=== PATIENT | female | born 2000 | race Caucasian/White ===

== ENCOUNTER 2019-03-28 15:31 | Emergency (ER) | payer OTHER ==
[2019-03-28 15:47] VITALS: BP 143/90
--- NOTE | 2019-03-28 16:00 | UC ---
Complaint Female HPI - HPI Summary HPI Summary: 18-year-old female presenting with friend for complaint of urinary frequency, urgency, and "bladder pressure" 2-3 days. Also states "it feels like I can't empty my bladder all the way." Patient states she is concerned for a UTI although this does not feel like her normal UTI. Denies dysuria or hematuria. Denies malodorous urine. Denies abdominal pain. Denies flank pain. Denies nausea and vomiting. Denies fever and chills. Patient adds she "gets really nervous around doctors." - History Of Current Complaint Chief Complaint: UCGU Stated Complaint: PERSONAL Hx Obtained From: Patient Hx Last Menstrual Period: 02/19/19 Pain Intensity: 5 Pain Scale Used: 0-10 Numeric - Allergies/Home Medications Allergies/Adverse Reactions: Allergies Allergy/AdvReac Type Severity Reaction Status Date / Time No Known Allergies Allergy Verified 03/28/19 15:47 Home Medications: Home Medications Control 1 tab PO DAILY 03/28/19 [History Confirmed 03/28/19] Nitrofurantoin Monohyd/M-Cryst [Macrobid 100 mg Capsule] 100 mg PO BID #10 cap 03/28/19 [Rx] PMH/Surg Hx/FS Hx/Imm Hx - Surgical History Surgical History: Yes Surgery Procedure, Year, and Place: left ovary for tortion and cyst - Family History Known Family History: Positive: Non-Contributory - Social History Alcohol Use: None Substance Use Type: None Smoking Status (MU): Never Smoked Tobacco Review of Systems All Other Systems Reviewed And Are Negative: Yes Constitutional: Positive: Negative Respiratory: Positive: Negative Cardiovascular: Positive: Negative Gastrointestinal: Positive: Abdominal Pain - lower abdominal/bladder pressure. Negative: Vomiting, Diarrhea, Nausea Genitourinary: Positive: Frequency, Urgency. Negative: Dysuria, Hematuria Musculoskeletal: Positive: Negative Neurological/Mental Status: Positive: Negative Psychological: Positive: Anxious Physical Exam - Summary Physical Exam Summary: Vital Signs Reviewed: Yes A+Ox3, no distress Eyes: Conjunctiva Clear ENT: Hearing grossly normal Neck: Positive: Supple Respiratory: Positive: No respiratory distress, No accessory muscle use + CTA throughout no w/r Cardiovascular: RRR nl s1, s2 no m/r Abd: soft + BS, +mild discomfort with palpation of b/l lower abdomen, no distention, no guarding Musculoskeletal Exam: KONG x 4 without difficulty Neurological: Positive: Alert Psychological: Positive: age appropriate behavior Skin: Positive: no rash, no ecchymosis Vital Signs: Initial Vital Signs Temp 99.7 F 03/28/19 15:41 Pulse 96 03/28/19 15:41 Resp 16 03/28/19 15:41 BP 143/90 03/28/19 15:41 Pulse Ox 97 03/28/19 15:41 Lab Results 03/28/19 03/28/19 Range/Units 15:59 16:01 POC Urine Color Yellow POC Urine Clarity Slightly cloudy POC Urine pH 7.0 (5-9) POC Ur Specif [place] 1.020 (1.010-1.030) POC Urine Protein Negative (Negative) POC Ur Glucose (UA) Negative (Negative) POC Urine Ketones Negative (Negative) POC Urine Blood Trace-intact (Negative) POC Urine Nitrite Negative (Negative) POC Urine Bilirubin Negative (Negative) POC Urine Urobilinogen 1.0 (Negative) POC U Leukocyte Esteras Trace A (Negative) POC Ur Test Negative (Negative) Complaint Female Dx - Course Course Of Treatment: UA positive for trace blood and leuks. I treated patient with macrobid for UTI and instructed to take Azo for symptom relief. Instructed to follow up with [facility] if symptoms persist and to go to ED with any new or worsening symptoms. Patient voiced understanding and agreed with treatment plan. - Differential Dx/Diagnosis Provider Diagnosis: UTI (urinary tract infection) Discharge ED - Sign-Out/Discharge Documenting (check all that apply): Patient Departure All imaging exams completed and their final reports reviewed: No Studies - Discharge Plan Condition: Stable Disposition: HOME Prescriptions: Nitrofurantoin Monohyd/M-Cryst [Macrobid 100 mg Capsule] 100 mg PO BID #10 cap Patient Education Materials: Urinary Tract Infection in Women (ED) Referrals: [facility] [Outside] - If Needed Additional Instructions: As discussed, take Macrobid for treatment of your UTI. You may also take Azo as needed for symptomatic relief. Increase your fluid intake. Follow up with the [facility] listed below if symptoms do not improve within 3-5 days. Go to emergency room with any new or worsening symptoms. - Billing Disposition and Condition Condition: STABLE Disposition: Home
--- NOTE | 2019-03-29 16:43 | UC ---
- Progress Note Progress Note: Urine culture with no growth. If improving may finish anbx If not improving may stop anbx and needs recheck Course/Dx - Diagnoses Provider Diagnoses: UTI (urinary tract infection) Discharge ED - Sign-Out/Discharge Documenting (check all that apply): Post-Discharge Follow Up All imaging exams completed and their final reports reviewed: No Studies - Discharge Plan Condition: Stable Disposition: HOME Prescriptions: Nitrofurantoin Monohyd/M-Cryst [Macrobid 100 mg Capsule] 100 mg PO BID #10 cap Patient Education Materials: Urinary Tract Infection in Women (ED) Referrals: [facility] [Outside] - If Needed Additional Instructions: As discussed, take Macrobid for treatment of your UTI. You may also take Azo as needed for symptomatic relief. Increase your fluid intake. Follow up with the [facility] listed below if symptoms do not improve within 3-5 days. Go to emergency room with any new or worsening symptoms. - Billing Disposition and Condition Condition: STABLE Disposition: Home
== END 2019-03-28 16:37 | disposition home or self-care (01) ==
LOC: UCEAST 15:31
DX: N39.0 Urinary tract infection, site not specified (principal)
CPT/HCPCS: 81003; 84702; 87086; 99212; G0463